=== PATIENT | male | born 1945 | race Caucasian/White ===

== ENCOUNTER 2021-04-22 05:32 | Outpatient (CLI) | payer MEDICARE, MEDICAID ==
[~2021-04-22] VITALS: Ht 167 cm; Wt 75.0 kg
[2021-04-22] MEDS ORDERED: LATA2.5D19 OU (13:07)
[2021-04-22] MEDS ORDERED: QUET50TA PO (13:07)
[2021-04-22] MEDS ORDERED: GLYC10.7 IH (13:07)
[2021-04-22] MEDS ORDERED: RT-ALBUINH IH (13:07)
== END 2021-04-22 13:11 | disposition home or self-care (01) ==
LOC: PREOP 05:32
PROVIDERS: ATTEND Specialist
DX: Z01.818 Encounter for other preprocedural examination (principal)

== ENCOUNTER 2021-04-26 11:38 | Day surgery (SDC) | payer MEDICARE, MEDICAID ==
[~2021-04-26] VITALS: Ht 167.7 cm; Wt 75.0 kg
[~2021-04-26 11:38] MED LIST: GLYC10.7 IH; LATA2.5D19 OU; QUET50TA PO; RT-ALBUINH IH
[2021-04-26] MEDS ORDERED: POVIDONE (BETADINE) OPHTH SOLN 5% 30 ML OP ONE (12:00)
[2021-04-26] MEDS ORDERED: TIMOLOL MALEATE 0.5% 5 ML (TIMOPTIC) BTL OU PRN (12:00)
[2021-04-26] MEDS ORDERED: MOXIFLOXACIN OPHTH SOLN 5 MG/ML 0.3 ML SYRINGE OP ONE (12:00)
[2021-04-26] MEDS ORDERED: LIDOCAINE PF 1% 2 ML VIAL IR PRN (12:00)
[2021-04-26] MEDS: TETRACAINE 0.5% OPHTH SOLN 4 ML BTL (SINGLE DOSE ONLY) OU PRN ×4 (12:00→12:18)
[2021-04-26] MEDS: TROPICAMIDE 1% OPH SOLN (MYDRIACYL) 15 ML BTL OP SCH ×3 (12:07→12:18)
[2021-04-26] MEDS: PHENYLEPHRINE 10% OPHTH (NEO-SYN) 5 ML BTL OU SCH ×3 (12:07→12:18)
[2021-04-26 12:10] VITALS: BP 144/92
[2021-04-26] MEDS ORDERED: MIDAZOLAM 2 MG/2 ML (VERSED) VIAL ONE (12:46)
--- NOTE | 2021-04-26 12:47 | Ophthalmologist Pre-Op Note ---
Pre-Operative Progress Note H&P Reviewed The H&P was reviewed, patient examined and no changes noted. Date H&P Reviewed: Apr 26, 2021 Time H&P Reviewed: 12:47 Pre-Op Dx Cataract, Right Eye DODIE SANCHEZ MD Apr 26, 2021 12:47
[2021-04-26] MEDS ORDERED: acetaZOLAMIDE ER 500 MG CAP (DIAMOX SEQUELS) PO ONE (13:00)
--- NOTE | 2021-04-26 13:10 | Ophthalmology Operative Report ---
Cataract removal/placement IOL PREOPERATIVE DIAGNOSIS: Cataract Right Eye POSTOPERATIVE DIAGNOSIS: Cataract Right Eye PROCEDURE: Cataract removal and placement of posterior chamber implant, right eye SURGEON: Marbin Sanchez ANESTHESIA: Topical with sedation COMPLICATIONS: None ESTIMATED BLOOD LOSS: Minimal DESCRIPTION OF PROCEDURE: After proper informed consent was obtained, the patient, a 76 male, was taken to the Operating Room and the right eye was anesthetized with tetracaine. The right eye was then prepped and draped in the usual manner. A wire lid speculum was placed. A paracentesis was made at the left hand position. Preservative free lidocaine was injected into the anterior chamber followed by viscoelastic. A clear corneal incision was made in the temporal position. A capsulorrhexis was preformed and the central nuclear and cortical material were removed. The posterior capsule was polished and Saad 18.0 AU00T0 IOL was placed into the capsular bag. The residual viscoelastic was aspirated and balanced saline solution was injected into the anterior chamber. Moxifloxacin was injected into the anterior chamber. The wound was checked and found to be water tight. The patient tolerated the procedure well without complications. MARBIN SANCHEZ MD Apr 26, 2021 13:10
--- NOTE | 2021-04-26 13:18 | Anesthesia-General Post-Op ---
MAC Patient Condition Mental Status/LOC: Same as Preop Cardiovascular: Satisfactory Nausea/Vomiting: Absent Respiratory: Satisfactory Pain: Controlled Complications: Absent Post Op Complications Complications None Follow Up Care/Instructions Patient Instructions None needed. Anesthesiology Discharge Order Discharge Order Patient is doing well, no complaints, stable vital signs, no apparent adverse anesthesia problems. No complications reported per nursing. CHRISTI FERRELL CRNA Apr 26, 2021 13:18
[2021-04-26 13:25] VITALS: BP 110/77
== END 2021-04-26 13:25 ==
LOC: SDC 11:38
PROVIDERS: ATTEND Specialist
DX: H25.11 Age-related nuclear cataract, right eye (principal); J44.9 Chronic obstructive pulmonary disease, unspecified; F17.200 Nicotine dependence, unspecified, uncomplicated; Z79.899 Other long term (current) drug therapy
CPT/HCPCS: 66984; V2632

== ENCOUNTER 2021-05-03 07:15 | Outpatient (CLI) | payer MEDICARE, MEDICAID ==
[~2021-05-03] VITALS: Ht 167.7 cm; Wt 75.0 kg
== END 2021-05-03 13:18 | disposition home or self-care (01) ==
LOC: PREOP 07:15
PROVIDERS: ATTEND Specialist
DX: Z01.818 Encounter for other preprocedural examination (principal)

== ENCOUNTER 2021-05-10 11:48 | Day surgery (SDC) | payer MEDICARE, MEDICAID ==
[~2021-05-10] VITALS: Ht 167 cm; Wt 75.0 kg
[2021-05-10] MEDS: TETRACAINE 0.5% OPHTH SOLN 4 ML BTL (SINGLE DOSE ONLY) OU PRN ×4 (11:56→12:13)
[2021-05-10] MEDS ORDERED: POVIDONE (BETADINE) OPHTH SOLN 5% 30 ML OP ONE (12:00)
[2021-05-10] MEDS ORDERED: TIMOLOL MALEATE 0.5% 5 ML (TIMOPTIC) BTL OU PRN (12:00)
[2021-05-10] MEDS ORDERED: MOXIFLOXACIN OPHTH SOLN 5 MG/ML 0.3 ML SYRINGE OP ONE (12:00)
[2021-05-10] MEDS ORDERED: LIDOCAINE PF 1% 2 ML VIAL IR PRN (12:00)
[2021-05-10] MEDS ORDERED: acetaZOLAMIDE ER 500 MG CAP (DIAMOX SEQUELS) PO ONE (12:00)
[2021-05-10] MEDS ORDERED: MIDAZOLAM 2 MG/2 ML (VERSED) VIAL ONE (12:01)
[2021-05-10] MEDS: TROPICAMIDE 1% OPH SOLN (MYDRIACYL) 15 ML BTL OP SCH ×3 (12:03→12:13)
[2021-05-10] MEDS: PHENYLEPHRINE 10% OPHTH (NEO-SYN) 5 ML BTL OU SCH ×3 (12:03→12:13)
[2021-05-10 12:10] VITALS: BP 134/80
--- NOTE | 2021-05-10 12:32 | Ophthalmologist Pre-Op Note ---
Pre-Operative Progress Note H&P Reviewed The H&P was reviewed, patient examined and no changes noted. Date H&P Reviewed: May 10, 2021 Time H&P Reviewed: 12:32 Pre-Op Dx Cataract, Left Eye DODIE SANCHEZ MD May 10, 2021 12:32
--- NOTE | 2021-05-10 12:49 | Ophthalmology Operative Report ---
Cataract removal/placement IOL PREOPERATIVE DIAGNOSIS: Cataract Right Eye POSTOPERATIVE DIAGNOSIS: Cataract Right Eye PROCEDURE: Cataract removal and placement of posterior chamber implant, right eye SURGEON: Marbin Sanchez ANESTHESIA: Topical with sedation COMPLICATIONS: None ESTIMATED BLOOD LOSS: Minimal DESCRIPTION OF PROCEDURE: After proper informed consent was obtained, the patient, a 76 male, was taken to the Operating Room and the right eye was anesthetized with tetracaine. The right eye was then prepped and draped in the usual manner. A wire lid speculum was placed. A paracentesis was made at the left hand position. Preservative free lidocaine was injected into the anterior chamber followed by viscoelastic. A clear corneal incision was made in the temporal position. A capsulorrhexis was preformed and the central nuclear and cortical material were removed. The posterior capsule was polished and Asad 18.0 AU00T0 IOL was placed into the capsular bag. The residual viscoelastic was aspirated and balanced saline solution was injected into the anterior chamber. Moxifloxacin was injected into the anterior chamber. The wound was checked and found to be water tight. The patient tolerated the procedure well without complications. MARBIN SANCHEZ MD May 10, 2021 12:49
--- NOTE | 2021-05-10 12:50 | Ophthalmology Operative Report ---
Cataract removal/placement IOL PREOPERATIVE DIAGNOSIS: Cataract Left Eye POSTOPERATIVE DIAGNOSIS: Cataract Left Eye PROCEDURE: Cataract removal and placement of posterior chamber implant, left eye SURGEON: Marbin Sanchez ANESTHESIA: Topical with sedation COMPLICATIONS: None ESTIMATED BLOOD LOSS: Minimal DESCRIPTION OF PROCEDURE: After proper informed consent was obtained, the patient, a 76 male, was taken to the Operating Room and the left eye was anesthetized with tetracaine. The left eye was then prepped and draped in the usual manner. A wire lid speculum was placed. A paracentesis was made at the left hand position. Preservative free lidocaine was injected into the anterior chamber followed by viscoelastic. A clear corneal incision was made in the temporal position. A capsulorrhexis was preformed and the central nuclear and cortical material were removed. The posterior capsule was polished and an Saad 18.0 AU00T0 was placed into the capsular bag. The residual viscoelastic was aspirated and balanced saline solution was injected into the anterior chamber. Moxifloxacin was injected into the anterior chamber. The wound was checked and found to be water tight. The patient tolerated the procedure well without complications. MARBIN SANCHEZ MD May 10, 2021 12:50
[2021-05-10 12:54] VITALS: BP 144/83
--- NOTE | 2021-05-10 13:33 | Anesthesia-General Post-Op ---
MAC Patient Condition Mental Status/LOC: Same as Preop Cardiovascular: Satisfactory Nausea/Vomiting: Absent Respiratory: Satisfactory Pain: Controlled Complications: Absent Post Op Complications Complications None Follow Up Care/Instructions Patient Instructions None needed. Anesthesiology Discharge Order Discharge Order Patient is doing well, no complaints, stable vital signs, no apparent adverse anesthesia problems. No complications reported per nursing. SAI AVILA CRNA May 10, 2021 13:33
== END 2021-05-10 12:55 ==
LOC: SDC 11:48
PROVIDERS: ATTEND Specialist
DX: H25.12 Age-related nuclear cataract, left eye (principal); J44.9 Chronic obstructive pulmonary disease, unspecified; F17.210 Nicotine dependence, cigarettes, uncomplicated; Z79.899 Other long term (current) drug therapy
CPT/HCPCS: 66984; V2632

== ENCOUNTER 2022-02-12 06:25 | Outpatient (CLI) | payer MEDICARE, MEDICAID ==
[~2022-02-12] VITALS: Ht 167.6 cm; Wt 70.8 kg
[2022-02-12] MEDS ORDERED: OMEP20CA18 PO (11:28)
[2022-02-12] MEDS ORDERED: QUET50TA23 PO (11:28)
[2022-02-12] MEDS ORDERED: IBUP-1780 PO (11:28)
== END 2022-02-12 13:36 | disposition home or self-care (01) ==
LOC: PREOP 06:25
PROVIDERS: ATTEND Surgery
DX: Z01.818 Encounter for other preprocedural examination (principal)

== ENCOUNTER 2022-02-25 06:45 | Day surgery (SDC) | payer MEDICARE, MEDICAID ==
[2022-02-25] VITALS (7 sets, daily range): BP systolic 124–140; BP diastolic 73–84
[~2022-02-25] VITALS: Ht 167.6 cm; Wt 70.9 kg
[~2022-02-25 06:45] MED LIST changes: +IBUP-1780 PO; +OMEP20CA18 PO; +QUET50TA23 PO
[2022-02-25] MEDS ORDERED: LACTATED RINGERS 1,000 ML IV STA (06:57)
[2022-02-25] MEDS ORDERED: HURRICAINE EXT TUBE (BENZOCAINE) XX PRN (07:00)
[2022-02-25] MEDS ORDERED: PROPOFOL INJECTION 50 ML IV ONE (07:46)
[2022-02-25] MEDS ORDERED: RT-ALBUTEROL SULF 2.5 MG/3 ML PRE-MIX VIAL INH ONE (08:00)
--- NOTE | 2022-02-25 08:31 | Progress Note-Pre Operative ---
Pre-Operative Progress Note H&P Reviewed The H&P was reviewed, patient examined and no changes noted. Date Seen by Provider: Feb 25, 2022 Time Seen by Provider: 08: Date H&P Reviewed: Feb 25, 2022 Time H&P Reviewed: 08:31 Pre-Operative Diagnosis: +cologuard, chronic gastritis SAIDA PATRICIA DO Feb 25, 2022 08:31
--- NOTE | 2022-02-25 09:37 | Discharge Inst-Simple/Standard ---
Discharge Inst-Standard Patient Instructions/Follow Up Plan of Care/Instructions/FU: 2 weeks Lizett Activity as Tolerated: Yes Discharge Diet: Regular Diet (high fiber) SAIDA PATRICIA DO Feb 25, 2022 09:37
--- NOTE | 2022-02-25 09:42 | Progress Note-Post Operative ---
Post-Operative Progess Note Surgeon (s)/Bus Washer (s) Surgeon SAIDA PATRICIA DO Bus Washer: na Pre-Operative Diagnosis +cologuard, chronic gastritis Post-Operative Diagnosis hiatal hernia, colon polyps, diverticulosis. Procedure & Operative Findings Date of Procedure 02/25/22 Procedure Performed/Findings egd c biopsies, colonoscopy c snare polypectomy x 4, hot bx polypectomy x 1 and juan inking of rectosigmoid polyp Anesthesia Type per broadcast journalist Estimated Blood Loss Estimated blood loss (mL): none Specimens/Packing Specimens Removed colon polyps, antrum, ge SAIDA PATRICIA DO Feb 25, 2022 09:42
--- NOTE | 2022-02-25 11:33 | Anesthesia-General Post-Op ---
MAC Patient Condition Mental Status/LOC: Same as Preop Cardiovascular: Satisfactory Nausea/Vomiting: Absent Respiratory: Satisfactory Pain: Controlled Complications: Absent Post Op Complications Complications None Follow Up Care/Instructions Patient Instructions None needed. Anesthesiology Discharge Order Discharge Order Patient is doing well, no complaints, stable vital signs, no apparent adverse anesthesia problems. No complications reported per nursing. SAI AVILA CRNA Feb 25, 2022 11:33
--- NOTE | 2022-02-25 15:42 | OPERATIVE REPORT ---
DATE OF SERVICE: 02/25/2022 PREOPERATIVE DIAGNOSES: 1. Positive Cologuard. 2. Chronic gastritis. POSTOPERATIVE DIAGNOSES: Hiatal hernia, colon polyps, diverticulosis. PROCEDURE: EGD with biopsies, colonoscopy with snare polypectomy x4 and hot biopsy polypectomy x1 and Maria Esther inking of rectosigmoid polyp. SURGEON: Wallace Phoenix DO ANESTHESIA: Per EASEMENT MAN. ESTIMATED BLOOD LOSS: None. COMPLICATIONS: None. SPECIMENS: Colon polyps and antrum and GE junction. INDICATIONS: The patient is an 86-year-old male who had a positive Cologuard test. He also has complaints of chronic gastritis. He understands risks and benefits of procedures and wishes to proceed. Consent was signed in the chart. DESCRIPTION OF PROCEDURE: The patient was taken to endoscopy suite, placed in left lateral recumbent position. Timeout was performed. Scope was inserted in mouth, down the esophagus, stomach and into the duodenum without difficulty. No polyps, masses or ulcerations within the duodenum. Scope was slowly retracted back into the stomach where it was further insufflated. No polyps, masses or ulcerations. A biopsy of GE junction was obtained. Scope was retracted and retroflexed noting a hiatal hernia, no other pathology noted. Scope was returned to its normal position, slowly withdrawn to distal esophagus. No polyps, masses or ulcerations. Biopsy of GE junction was obtained. Scope was then slowly retracted back until completely removed. Digital rectal exam was performed noting hemorrhoids. No palpable polyps, masses or ulcerations. Scope was inserted in the rectum and advanced all the way to cecum with minimal difficulty. Prep was adequate. Scope was slowly retracted back in the cecum, a larger polyp was present, which snare polypectomy was performed. This was obtained for specimen. Scope was then continuously retracted back in the ascending colon, another small polyp was present, which snare polypectomy was performed. Scope was then continuously retracted back. No polyps, masses or ulcerations within the transverse and descending colon. In the rectosigmoid junction, a large pedunculated polyp was there, which snare polypectomy was performed. Scope was used to suction it and remove it. Scope was then reinserted into this area, there was a second small polyp that was there, which hot biopsy polypectomy was performed. Just distal to this area, a total of 2 mL of Maria Esther ink was injected in two locations. Scope was then continuously retracted back into the rectum where another polyp was present, which snare polypectomy was performed. Scope was retroflexed noting no other pathology except for hemorrhoids. Scope was returned to its normal position, slowly withdrawn until completely removed. The patient tolerated procedure well without any complications, taken to recovery room in stable condition. RECOMMENDATIONS: The patient will need repeat colonoscopy in 6 to 12 months also depending upon pathology. Continue on current medications. The patient will follow up in two to three weeks. Job ID: [id number] DocumentID: [id number] Dictated Date: 02/25/2022 09:41:48 Functional Director Date: 02/25/2022 15:42:16 Dictated By: DO MAUREEN AGUIAR
== END 2022-02-25 10:14 | disposition home or self-care (01) ==
LOC: ENDO 06:45
PROVIDERS: ATTEND Surgery
DX: D12.0 Benign neoplasm of cecum (principal); D12.2 Benign neoplasm of ascending colon; D12.7 Benign neoplasm of rectosigmoid junction; K63.5 Polyp of colon; K62.1 Rectal polyp; K57.30 Diverticulosis of large intestine without perforation or abscess without bleeding; K44.9 Diaphragmatic hernia without obstruction or gangrene; K29.50 Unspecified chronic gastritis without bleeding; K64.9 Unspecified hemorrhoids; J44.9 Chronic obstructive pulmonary disease, unspecified; F17.210 Nicotine dependence, cigarettes, uncomplicated; Z88.0 Allergy status to penicillin; Z79.899 Other long term (current) drug therapy
CPT/HCPCS: 94640

== ENCOUNTER → 2022-06-05 | Outpatient (CLI) | payer MEDICARE, MEDICAID ==
[~2022-06-05] MED LIST changes: +CATHETER FLUSH 10 ML SYR IVP PRN; +REGADENOSON 0.4 MG/5 ML SYR (LEXISCAN) IV ONE
[2022-06-05 13:15] VITALS: BP 166/84
[2022-06-05 13:25] VITALS: BP 147/82
--- NOTE | 2022-06-06 08:28 | NUCLEAR STRESS TEST ---
REGADENOSON NUCLEAR STRESS Date of procedure: 06/05/2022. Primary care provider: ALICIA Dent Admitting physician: Camilo Fulton Jr., MD. INDICATION: Calcific coronary atherosclerosis. BASELINE ELECTROCARDIOGRAM: Sinus rhythm with possible old septal myocardial infarction. STRESS TEST PROCEDURE: This was initially intended to be a treadmill nuclear stress test but the patient could not walk on the treadmill and therefore, this was changed over to a regadenoson nuclear stress test. The patient was administered 0.4 mg of intravenous Regadenoson. The resting heart rate was 69 bpm and the peak heart rate was 102 bpm. The resting blood pressure was 147/82 mmHg and the minimum blood pressure was 100/70 mmHg. This represents a normal heart rate and a normal blood pressure response to Regadenoson. The test was stopped due to the protocol. There was no chest discomfort during the test. There were no arrhythmias during the test. There were no significant stress induced electrocardiogram changes. NUCLEAR PROCEDURE: The patient was administered 10.8 mCi of intravenous technetium 99m Tetrofosmin at rest for the rest images. The patient was subsequently administered 32.6 mCi of intravenous technetium 99m Tetrofosmin at peak stress for the stress images. Following an appropriate wait after each injection, imaging was obtained. The images were subsequently processed and reformatted in the usual views. Gated imaging was obtained. The image quality was adequate with a mild degree of gastrointestinal attenuation artifact. CT attenuation correction was used as a adjunct to standard imaging. Both the ruby ected and uncorrected images were reviewed for interpretation. NUCLEAR RESULTS: There was normal myocardial perfusion in all segments without evidence of infarction or ischemia. There was normal left ventricular chamber size with an end-diastolic volume of 44 mL and an end-systolic volume of 8 mL. There was no evidence of transient ischemic dilatation. The TID ratio was 1.03. There was normal wall motion in all segments with a calculated ejection fraction of 81%. IMPRESSION: 1. Normal heart rate and blood pressure response to regadenoson. 2. There was no chest discomfort, arrhythmias, or electrocardiogram changes during the test. 3. There was normal myocardial perfusion in all segments without evidence of infarction or ischemia. 4. There was normal wall motion in all segments with a calculated ejection fraction of 81%. Certain portions of this document may have been dictated utilizing voice recognition technology. Inherent to this technology, typographical and grammatical errors may exist. As much as I am diligent to identify and correct these mistakes, some errors may remain in the document. CAMILO FULTON JR, MD Jun 06, 2022 08:28
== END ==
LOC: CARD 10:09
PROVIDERS: ATTEND Internal Medicine Cardiovascular Disease
DX: I35.8 Other nonrheumatic aortic valve disorders (principal); I25.84 Coronary atherosclerosis due to calcified coronary lesion
CPT/HCPCS: 78452; 93017; 93306; A9502